=== PATIENT | male | born 1955 | race Caucasian/White ===

== ENCOUNTER → 2019-06-28 11:06 | Outpatient (BNVA) | payer BC, SELFPAY | PROVIDERS: Family Provider Nurse Practitioner Family; PCP Nurse Practitioner Family; Visit Provider Registered Nurse | DX: I10 Essential (primary) hypertension (principal); Z00.00 Encounter for general adult medical examination without abnormal findings; Z53.20 Procedure and treatment not carried out because of patient's decision for unspecified reasons; E55.9 Vitamin D deficiency, unspecified; F17.200 Nicotine dependence, unspecified, uncomplicated | CPT/HCPCS: 80053; 80061; 81000; 81003; 82306; 85025 ==

== ENCOUNTER → 2020-01-02 10:23 | Outpatient (BNVA) | payer BC, SELFPAY | PROVIDERS: Family Provider Nurse Practitioner Family; PCP Nurse Practitioner Family; Visit Provider Registered Nurse | DX: I10 Essential (primary) hypertension (principal); E55.9 Vitamin D deficiency, unspecified; F17.200 Nicotine dependence, unspecified, uncomplicated | CPT/HCPCS: 80053; 82306 ==

== ENCOUNTER → 2020-09-25 08:47 | Outpatient (BNVA) | payer BC, SELFPAY | PROVIDERS: Family Provider Nurse Practitioner Family; PCP Nurse Practitioner Family; Visit Provider Registered Nurse | DX: I10 Essential (primary) hypertension (principal); E11.9 Type 2 diabetes mellitus without complications; E78.5 Hyperlipidemia, unspecified; R01.1 Cardiac murmur, unspecified; F17.200 Nicotine dependence, unspecified, uncomplicated; Z53.20 Procedure and treatment not carried out because of patient's decision for unspecified reasons | CPT/HCPCS: 80053; 80061; 81000; 85025 ==

== ENCOUNTER 2022-04-10 06:27 | Inpatient (IN) | payer MEDICARE, SELFPAY ==
[2022-04-10] VITALS (135 sets, daily range): BP systolic 128–155; BP diastolic 57–89; PULSE 53–98; RESP 7–37; TEMP 37; O2SAT 71–97; BMI 33.0
--- NOTE | 2022-04-10 06:41 | XRR_ITS ---
PROCEDURE INFORMATION: Exam: XR Chest Exam date and time: 04/10/2022 7:53 AM Age: 67 years old Clinical indication: Cough and dyspnea; Additional info: Dyspnea/cough TECHNIQUE: Imaging protocol: Radiologic exam of the chest. Views: 1 view. COMPARISON: No relevant prior studies available. FINDINGS: Lungs: Platelike opacity in the mid right lung likely reflect atelectasis or scarring. Otherwise, no focal airspace consolidation. Pleural spaces: Unremarkable. No pleural effusion. No pneumothorax. Heart/Mediastinum: Unremarkable. No cardiomegaly. Bones/joints: Unremarkable. XR/XR chest 1V portable [id number] IMPRESSION: Platelike opacity in the mid right lung likely reflect atelectasis or scarring.
--- NOTE | 2022-04-10 06:42 | ED_ITS ---
HPI - URI/Sore Throat General: Chief Complaint: Upper Respiratory Infection Stated Complaint: Cough, body aches Time Seen by Provider: 04/10/22 06:29 Source: patient Mode of arrival: ambulatory History of Present Illness: 67-year-old male presents emergency room complaining of muscle aches cough for the last 2 days. Headache sinus congestion as well. His biggest complaint is the myalgias cough is nonproductive. Denies any shortness of breath. No chest pain or abdominal pain. MD elicited complaint: fever and cough Onset (ago): hour(s) Consistency: constant Severity: moderate Able to tolerate fluids by mouth: Yes Exacerbating factors: nothing Relieving factors: nothing Associated symptoms: Reports chills, congestion, cough, fever(s), headache(s) and myalgias; Deny abdominal pain, change in voice, chest pain, diarrhea, epistaxis, ear or mastoid pain, nasal congestion, nausea, rash, rhinorrhea, short of breath, sinus pain, stiffness, sore throat or vomiting Review of Systems Const: Reports: fever(s) and chills; Denies: fatigue or malaise ENMT: Denies: ear or mastoid pain, nasal congestion, epistaxis or sinus pain Card: Denies: chest pain, palpitations, irregular heart rhythm or edema Resp: Denies: dyspnea, productive cough or non-productive cough GI: Denies: abdominal pain, nausea, vomiting or diarrhea : Denies: flank pain, dysuria, urinary frequency or urinary urgency Musc: Denies: neck pain or back pain Skin/Breast: Denies: rash or pruritus Neuro: Reports: headache(s) PFSH ED PFSH: Medical History Heart murmur Reports hx normal echo Hypertension Family History Other Diabetes Social History Smoking and tobacco status: current every day smoker Physical Exam Const: COMMON NORMALS: no acute distress GENERAL APPEARANCE: cooperative and comfortable ORIENTATION/CONSCIOUSNESS: Yes awake, Yes oriented to person, Yes oriented to place and Yes oriented to time HENMT: COMMON NORMALS: normocephalic, atraumatic and hearing grossly normal bilaterally HEAD & SCALP: normocephalic and atraumatic Resp: COMMON NORMALS: normal respiratory effort, No retractions, No use of accessory muscles and clear to auscultation bilaterally AUSCULTATION: clear to auscultation bilaterally Cardio: COMMON NORMALS: regular rate and regular rhythm RATE: regular rate RHYTHM: regular rhythm HEART SOUNDS: Murmur heart sound present systolic Location: apex Intensity: III/ GI: COMMON NORMALS: Soft to palpation and No hepatosplenomegaly present AUSCULTATION: Yes normoactive bowel sounds PALPATION: Yes Soft to palpation, No Tenderness to palpation present (GI), No Guarding due to palpation present (GI) and Yes No hepatosplenomegaly present Extremity: COMMON NORMALS: normal to inspection, capillary refill normal, no clubbing, cyanosis or edema, no calf tenderness and no pedal edema Neuro: SENSORIUM/ORIENTATION: Yes oriented to person, Yes oriented to place and Yes oriented to time Skin: COMMON NORMALS: no rashes or lesions noted GENERAL SKIN EXAM: no rashes or lesions noted Course Vital Signs: Vital signs: Vital Signs Temperature 98.6 F 04/10/22 06:39 Pulse Rate 53 L 04/10/22 09:13 Respiratory Rate 30 H 04/10/22 07:30 Blood Pressure 135/73 04/10/22 06:39 Pulse Oximetry 91 04/10/22 09:13 Oxygen Delivery Me thod 04/10/22 08:38 Oxygen Flow Rate 50 04/10/22 07:30 Fraction of Inspir ed Oxygen 65 04/10/22 09:13 MDM - URI/Sore Throat Medical Decision Making Presentation patient was significantly hypoxic in the 70s oddly he was not tachycardic AllePak he was borderline bradycardic. Blood gases verified that his oxygen sat was reading correct at the bedside we had a good waveform at the bedside monitor. He did respond to heated high flow. Initially was concerned he would likely have COVID was his happy hypoxia . However his CT does not look like COVID's influenza's are negative his the CTA of his chest did not show any pulmonary embolism. He is awake and alert and oriented the entire time. He does have hypercapnia. We are going to put him on BiPAP and recheck a blood gas in an hour. He is mildly hyponatremic, he is also polycythemic but renal function is normal. Discussed with Dr. Connolly will admit the patient to the ICU on BiPAP she will continue to work-up. Medical Records I reviewed the patient's medical records. Lab Data I reviewed the patient's lab results. 04/10/22 06:56 04/10/22 06:56 Radiology Impressions Chest X-Ray 04/10/22 06:41 IMPRESSION: Platelike opacity in the mid right lung likely reflect atelectasis or scarring. Chest CTA 04/10/22 07:27 IMPRESSION: 1. No pulmonary emboli identified. 2. Mild atelectasis in the mid right lung. Laboratory Results WBC 7.5 10^3/uL (4.0-10.0) 04/10/22 06:56 RBC 5.93 10^6/uL (4.1-5.3) H 04/10/22 06:56 Hgb 18.6 g/dL (11.7-16.6) H 04/10/22 06:56 Hct 56.4 % (42.0-52.0) H 04/10/22 06:56 MCV 95.1 fl (80-94) H 04/10/22 06:56 MCH 31.4 pg (28.0-34.0) 04/10/22 06:56 MCHC 33.0 g/dL (30.0-36.0) 04/10/22 06:56 RDW 14.2 % (12.1-15.1) 04/10/22 06:56 Plt Count 126 10^3/cmm (130-400) L 04/10/22 06:56 MPV 10.1 fL (7.4-10.4) 04/10/22 06:56 Neut % (Auto) 76.0 % 04/10/22 06:56 Lymph % (Auto) 10.3 % 04/10/22 06:56 [place] % (Auto) 11.3 % 04/10/22 06:56 Eos % (Auto) 0.4 % 04/10/22 06:56 Baso % (Auto) 0.9 % 04/10/22 06:56 Neut # (Auto) 5.67 10^3/uL (1.8-7.7) 04/10/22 06:56 Lymph # (Auto) 0.8 10^3/uL (0.8-4.8) 04/10/22 06:56 [place] # (Auto) 0.8 10^3/uL (0.2-0.9) 04/10/22 06:56 Eos # (Auto) 0.0 10^3/uL (0.0-0.8) 04/10/22 06:56 Baso # (Auto) 0.1 10^3/uL (0.0-0.1) 04/10/22 06:56 Nucleated RBC % (auto) 0 % 04/10/22 06:56 Nucleated RBCs # 0.0 /100WBC 04/10/22 06:56 D-Dimer 0.34 ug/mIFEU (0-0.59) 04/10/22 07:30 Specimen Type Arterial 04/10/22 07:11 Sample Site Radial, left 04/10/22 07:11 ABG pH 7.33 (7.35-7.45) L 04/10/22 07:11 ABG pCO2 64.4 mmHg (35-45) H* 04/10/22 07:11 ABG pO2 34.5 mmHg (80.0-100.0) L* 04/10/22 07:11 ABG HCO3 34.1 mmol/L (22-26) H 04/10/22 07:11 ABG O2 Saturation 68.8 04/10/22 07:11 ABG Base Excess 5.1 mmol/L (-2.0-2.0) H 04/10/22 07:11 Jacky Test Pos 04/10/22 07:11 A-a O2 Gradient 4.7 mmHg (5-10) L 04/10/22 07:11 Hematocrit 58.3 % (42-52) H 04/10/22 07:11 Hgb O2 Saturation 65.6 % (95-100) L 04/10/22 07:11 Carboxyhemoglobin 4.6 %THgb (0.4-20.1) 04/10/22 07:11 Methemoglobin 0.1 % (0.4-1.5) L 04/10/22 07:11 Total Hemoglobin 19.0 g/dL (14-18) H 04/10/22 07:11 Sodium 133.0 mmol/L (131-143) 04/10/22 07:11 Potassium 4.0 mmol/L (3.5-5.0) 04/10/22 07:11 Glucose 110.0 mg/dL (70-115) 04/10/22 07:11 Ionized Calcium 1.4 mmol/L (1.1-1.4) 04/10/22 07:11 O2 Delivery Device Room air 04/10/22 07:11 FiO2 21.0 % 04/10/22 07:11 Broke Beater Machine Operator ID glc 04/10/22 07:11 Sodium 128 mmol/L (136-145) L 04/10/22 06:56 Potassium 4.1 mmol/L (3.5-5.1) 04/10/22 06:56 Chloride 91 mmol/L (98-107) L 04/10/22 06:56 Carbon Dioxide 33 mmol/L (22-29) H 04/10/22 06:56 Anion Gap 8.1 (5-19) 04/10/22 06:56 BUN 26 mg/dL (8-23) H 04/10/22 06:56 Creatinine 0.9 mg/dL (0.7-1.2) 04/10/22 06:56 GFR Calculation 84.7 mL/min (90-130) L 04/10/22 06:56 Glucose 117 mg/dL (65-115) H 04/10/22 06:56 Calculated Osmolality 272 mOsm/kg (285-295) L 04/10/22 06:56 Calcium 10.2 mg/dL (8.5-10.5) 04/10/22 06:56 Total Bilirubin 0.8 mg/dL (0.15-1.2) 04/10/22 06:56 AST 23 U/L (0-40) 04/10/22 06:56 ALT 29 U/L (0-41) 04/10/22 06:56 Alkaline Phosphatase 72 U/L (40-130) 04/10/22 06:56 Total Protein 7.0 g/dL (6.6-8.7) 04/10/22 06:56 Albumin 3.8 g/dL (3.5-5.2) 04/10/22 06:56 Globulin 3.2 g/dL (1.3-4.6) 04/10/22 06:56 Procalcitonin 0.13 ng/mL (0-0.5) 04/10/22 07:30 Influenza Type A Ag negative (Negative) 04/10/22 07:32 Influenza Type B Ag negative (Negative) 04/10/22 07:32 Discharge Plan Discharge Patient Disposition: Admitted As Inpatient Clinical Impression: Respiratory failure with hypoxia and hypercapnia, Hyponatremia, Polycythemia Condition: Stable Prescriptions: No Action amlodipine 10 mg tablet See Rx Instructions .ROUTE .COMPLEX Qty: 90 3RF Dose Instruction: Take 1 tablet by mouth once daily Rx Instructions: Take 1 tablet by mouth once daily metoprolol tartrate 25 mg tablet 25 mg PO BID 90 Days Qty: 180 4RF telmisartan-hydrochlorothiazid 80-25 mg tablet See Rx Instructions .ROUTE .COMPLEX Qty: 90 4RF Dose Instruction: Take 1 tablet by mouth once daily Rx Instructions: Take 1 tablet by mouth once daily cholecalciferol (vitamin D3) 1,250 mcg (50,000 unit) capsule 1,250 mcg PO .once a week Qty: 12 1RF Referrals: Andrew Henderson FNP [Primary Care Provider] - Coding Level of Care Code ED Truck Trailer Mechanic for Chg Fwd Exam Detailed
[2022-04-10] MEDS: ibuprofen 800 mg tablet PO (06:45)
[2022-04-10 07:06] LABS: Basophils # 0.1 10^3/uL (0.0-0.1); Basophils % 0.9 %; Eosinophils % 0.4 %; Hematocrit 56.4 % (42.0-52.0); Hemoglobin 18.6 g/dL (11.7-16.6); Lymphocytes # 0.8 10^3/uL (0.8-4.8); Lymphocytes % 10.3 %; Mean Corpuscular Hemoglobin 31.4 pg (28.0-34.0); Mean Corpuscular Volume 95.1 fl (80-94); Mean Platelet Volume 10.1 fL (7.4-10.4); Monocytes # 0.8 10^3/uL (0.2-0.9); Monocytes % 11.3 %; Neutrophils # 5.67 10^3/uL (1.8-7.7); Nucleated Red Blood Cells % 0 %; Platelet Count 126 10^3/cmm (130-400); Red Blood Count 5.93 10^6/uL (4.1-5.3); Red Cell Distribution Width 14.2 % (12.1-15.1); White Blood Count 7.5 10^3/uL (4.0-10.0)
--- NOTE | 2022-04-10 07:14 | PC.NURSE ---
Pt is reading 75% with good wave form, pt denies any kind of lung problems but dies say he is a smoker. Pt denies any resp distress and says he is breathing fine at this time
[2022-04-10 07:20] LABS: ABG PH Result 7.33 (7.35-7.45); Alveolar-Arterial Oxygen Gradi 4.7 mmHg (5-10); Arterial Blood Gas Hematocrit 58.3 % (42-52); Base Excess ABG 5.1 mmol/L (-2.0-2.0); Blood Gas Allen Test Pos; Blood Gas Operator Identificat glc; Blood Gas Sample Site Radial, left; Blood Gas Sample Type Arterial; Carboxyhemoglobin 4.6 %THgb (0.4-20.1); HCO3 ABG 34.1 mmol/L (22-26); HGB O2 Sat 65.6 % (95-100); Ionized Calcium Level - ABG 1.4 mmol/L (1.1-1.4); Methemoglobin 0.1 % (0.4-1.5); Oxygen Device ROOM AIR; Oxygen Saturation ABG 68.8; PO2 ABG 34.5 mmHg (80.0-100.0)
[2022-04-10 07:21] LABS: Alanine Aminotransferase 29 U/L (0-41); Albumin Level 3.8 g/dL (3.5-5.2); Alkaline Phosphatase 72 U/L (40-130); Anion Gap 8.1 (5-19); Aspartate Amino Transferase 23 U/L (0-40); Blood Urea Nitrogen 26 mg/dL (8-23); Calcium 10.2 mg/dL (8.5-10.5); Carbon Dioxide 33 mmol/L (22-29); Chloride 91 mmol/L (98-107); Globulin 3.2 g/dL (1.3-4.6); Glomerular Filtration Rate 84.7 mL/min (90-130); Glucose 117 mg/dL (65-115); Osmolality Calculated 272 mOsm/kg (285-295); Potassium 4.1 mmol/L (3.5-5.1); Sodium 128 mmol/L (136-145); Total Bilirubin 0.8 mg/dL (0.15-1.2)
[2022-04-10 07:22] LABS: ABG PCO2 64.4 mmHg (35-45)
--- NOTE | 2022-04-10 07:27 | CTR_ITS ---
PROCEDURE INFORMATION: Exam: CTA Chest With Contrast Exam date and time: 04/10/2022 7:52 AM Age: 67 years old Clinical indication: Shortness of breath; Additional info: Hypoxia TECHNIQUE: Imaging protocol: Computed tomographic angiography of the chest with contrast. 3D rendering (Not supervised by radiologist): MIP and/or 3D reconstructed images were created by the technologist. Radiation optimization: All CT scans at this facility use at least one of these dose optimization techniques: automated exposure control; mA and/or kV adjustment per patient size (includes targeted exams where dose is matched to clinical indication); or iterative reconstruction. Contrast material: OMNI 350; Contrast volume: 98 ml; Contrast route: INTRAVENOUS (IV); COMPARISON: No relevant prior studies available. RADIATION DOSE METRICS: Total DLP (mGy-cm): 542.2 FINDINGS: Pulmonary arteries: Normal. No pulmonary emboli. Aorta: Unremarkable. No aortic aneurysm. No aortic dissection. Lungs: Mild atelectasis in the mid right lung. Otherwise, no focal airspace consolidation. Pleural spaces: Unremarkable. No pneumothorax. No pleural effusion. Heart: Unremarkable. No cardiomegaly. No pericardial effusion. Lymph nodes: Mildly prominent right hilar lymphoid tissue, nonspecific. Diaphragm: Elevation of the right hemidiaphragm. Adrenal glands: Low-density nodule in the left adrenal gland measuring 2.6 cm likely reflects an adenoma. Bones/joints: Remote appearing compression fractures in the lower thoracic spine. Soft tissues: Unremarkable. CT/CT angio chest PE protcl [id number] IMPRESSION: 1. No pulmonary emboli identified. 2. Mild atelectasis in the mid right lung.
[2022-04-10] MEDS: ipratropium-albuterol 3 mL Neb INHALATION ×3 (07:37→19:23)
[2022-04-10] MEDS: iohexol 350 mg/mL 500 mL Btl (per mL) IV (07:56)
[2022-04-10 07:57] LABS: D Dimer 0.34 ug/mIFEU (0-0.59)
[2022-04-10 08:10] LABS: Procalcitonin 0.13 ng/mL (0-0.5)
[2022-04-10 08:11] LABS: Influenza A by IFA negative (Negative); Influenza B by IFA negative (Negative)
--- NOTE | 2022-04-10 08:51 | ECG_ITS ---
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 Measurements Intervals [place] Rate: 68 P: 40 MI: 179 QRS: -25 QRSD: 112 T: 112 QT: 390 QTc: 415 Interpretive Statements SINUS RHYTHM POSSIBLE LEFT ATRIAL ENLARGEMENT [-0.1mV P-WAVE IN V1/V2] SEPTAL MYOCARDIAL INFARCTION , OF INDETERMINATE AGE [40+ ms Q WAVE IN V1/V2] MODERATE T-WAVE ABNORMALITY, CONSIDER LATERAL ISCHEMIA [-0.1+ mV T-WAVE IN I/aVL/V5/V6] No previous ECG available for comparison Electronically Signed On 04-11-2022 13:53:56 DIRECTOR CLINICAL DATA by Yenifer Wallace M.D. [id number]
[2022-04-10 10:13] LABS: Acetaminophen < 5.0 ug/mL (10-30); Salicylate < 0.3 mg/dL (3-10)
[2022-04-10 10:48] LABS: Amphetamines Screen Urine Negative (Negative); Barbiturates Screen Urine Negative (Negative); Benzodiazepines Screen Urine Negative (Negative); Cocaine Screen Urine Negative (Negative); Opiate Screen Urine Negative (Negative); PCP Screen Urine Negative (Negative); THC Screen Urine Negative (Negative)
[2022-04-10 11:17] LABS: Adenovirus Not Detected (NOT DETECT); Chlamydia Pneumoniae Not Detected (NOT DETECT); Coronavirus 229E,HKU1,NL63,OC4 Not Detected (NOT DETECT); Human Metapneumovirus Not Detected (NOT DETECT); Human Rhinovirus/Enterovirus Not Detected (NOT DETECT); Influenza A Detected (NOT DETECT); Influenza A H1 Not Detected (NOT DETECT); Influenza A H1-2009 Not Detected (NOT DETECT); Influenza A H3 Detected (NOT DETECT); Influenza B Not Detected (NOT DETECT); Mycoplasma Pneumoniae Not Detected (NOT DETECT); Parainfluenza Virus Type 1 Not Detected (NOT DETECT); Parainfluenza Virus Type 2 Not Detected (NOT DETECT); Parainfluenza Virus Type 3 Not Detected (NOT DETECT); Parainfluenza Virus Type 4 Not Detected (NOT DETECT); Respiratory Syncytial Virus A Not Detected (NOT DETECT); Respiratory Syncytial Virus B Not Detected (NOT DETECT); SARS-COV-2 Not Detected (NOT DETECT)
[2022-04-10 11:25] LABS: Influenza A Detected (NOT DETECT); Influenza A H1 Not Detected (NOT DETECT); Influenza A H1-2009 Not Detected (NOT DETECT); Influenza A H3 Detected (NOT DETECT); Influenza B Not Detected (NOT DETECT); Results from Genmark
--- NOTE | 2022-04-10 13:28 | P.HP_ITS ---
Providers/Chief Complaint Admitting Physician: Muna Connolly MD Primary Care Provider: KEREN Ortega Chief Complaint: Cough, body aches History of Present Illness Fly Cervantes is a 67 year old male with a past medical history of hypertension, possible emphysema/COPD, chronic smoker for over 40 years, presented to the emergency room today complaining of generalized body ache. He states he felt generalized malaise and that is what brought him into the emergency room. Upon presentation here he was noted to be saturating only 70% on room air though did not appear to be tachypneic or in overt respiratory distress as a result of the same. His blood gas was significantly deranged with a pH of 7.33/64.4/34.5/34.1. He was placed on heated high flow nasal cannula at 70% FiO2 with improvement in O2 sats at 91%. Patient refused to be placed on a BiPAP as it made him feel claustrophobic. He denies having had any fever at home, however reports subjective chills. CTA of his chest did not reveal any gross consolidation. He denies any cough or expectoration. He did have wheezing on exam bilaterally. He turned out to be influenza positive. Review of Systems General: Reports: 10 or more systems reviewed and unremarkable except in HPI and below Const: Denies: fever(s), chills or body aches Eyes: Denies: change in vision, blurry vision or photophobia ENMT: Reports: hoarseness; Denies: throat pain, enlarged tonsils, odynophagia or nasal congestion Card: Denies: chest pain, palpitations, irregular heart rhythm, edema, swelling of feet/ankles, lightheadedness, pre-syncope, dyspnea on exertion or orthopnea Resp: Denies: dyspnea, productive cough, non-productive cough, wheezing, stridor, pain on inspiration, change in phlegm color, hemoptysis or chest congestion GI: Denies: abdominal pain, nausea, vomiting, hematemesis, coffee ground emesis, dysphagia, heartburn, diarrhea, constipation, GI cramping, change in stool character, hematochezia or melena : Denies: flank pain, dysuria, urinary frequency, urinary urgency, urinary hesitancy or hematuria Musc: Denies: neck pain, back pain, extremity pain, joint swelling, joint warmth or deformity Neuro: Denies: headache(s), numbness in extremities, weakness in extremities, sensory changes, difficulty walking, frequent falls, dizziness, vertigo, behavioral changes, Slurred speech present or seizure-like activity Psych: Denies: anxiety, depression, suicidal ideation or homicidal ideation Endo: Denies: polyuria, polydipsia, tired all the time, cold intolerance or hot flashes Jesús/Lymph: Denies: easy bruising or easy bleeding Medications/Allergies Home Medications Medication Instructions Recorded Confirmed Last Taken Type metoprolol tartrate 25 mg tablet 25 mg PO BID 90 days #180 tabs 06/04/21 04/10/22 04/10/22 Rx amlodipine 10 mg tablet 10 mg PO DAILY 04/10/22 04/10/22 04/10/22 History aspirin 81 mg chewable tablet 81 mg PO DAILY 04/10/22 04/10/22 04/10/22 History dicyclomine 20 mg tablet 20 mg PO QID 04/10/22 04/10/22 04/10/22 History multivitamin 1 tab PO DAILY 04/10/22 04/10/22 04/10/22 History telmisartan 80 1 tab PO DAILY 04/10/22 04/10/22 04/10/22 History mg-hydrochlorothiazide 25 mg tablet Allergies Allergy/AdvReac Type Severity Reaction Status Date / Time No Known Allergies Allergy Verified 06/04/21 14:44 PFSH Acute PFSH: Medical History Heart murmur Reports hx normal echo Hypertension Family History Other Diabetes Social History Smoking and tobacco status: current every day smoker Vitals/I&O/Wt Last Vital Signs Temp 98.6 F 04/10/22 06:39 Pulse 62 04/10/22 10:07 Resp 30 H 04/10/22 07:30 BP 135/73 04/10/22 06:39 Pulse Ox 94 04/10/22 10:07 O2 Del Method 04/10/22 08:38 O2 Flow Rate 50 04/10/22 07:30 FiO2 70 04/10/22 10:07 Weight last 48 hrs Weight 113.398 kg Physical Exam Narrative: General: No acute distress, AO x3, currently on a heated high flow HEENT: PERRLA, pupils bilaterally equal and reactive, pallors not present Chest: Bilateral wheezing to auscultation CVS: S1-S2 regular, no murmurs, no tachycardia, no gallops, no rubs Abdomen: Soft, nontender, no organomegaly, bowel sounds present Neuro: No focal deficits, no facial deformity, AO x3, power 5/5 in all limbs Extremities: No edema clubbing or cyanosis. Data 04/10/22 06:56 04/10/22 06:56 Micro: Microbiology 04/10/22 07:33 Blood Culture - Preliminary Blood SPECIMEN COLLECTED 04/10/22 07:30 Blood Culture - Preliminary Blood SPECIMEN COLLECTED ABG Interpretation 1: 04/10/22 04/10/22 07:11 14:25 ABG pH 7.33 L 7.30 L ABG pCO2 64.4 H* 71.2 H* ABG pO2 34.5 L* 70.3 L ABG HCO3 34.1 H 34.7 H ABG O2 Saturation 68.8 ABG Base Excess 5.1 H 4.5 H Other data: Radiology Impressions Chest X-Ray 04/10/22 06:41 IMPRESSION: Platelike opacity in the mid right lung likely reflect atelectasis or scarring. Chest CTA 04/10/22 07:27 IMPRESSION: 1. No pulmonary emboli identified. 2. Mild atelectasis in the mid right lung. Laboratory Results WBC 7.5 10^3/uL (4.0-10.0) 04/10/22 06:56 RBC 5.93 10^6/uL (4.1-5.3) H 04/10/22 06:56 Hgb 18.6 g/dL (11.7-16.6) H 04/10/22 06:56 Hct 56.4 % (42.0-52.0) H 04/10/22 06:56 MCV 95.1 fl (80-94) H 04/10/22 06:56 MCH 31.4 pg (28.0-34.0) 04/10/22 06:56 MCHC 33.0 g/dL (30.0-36.0) 04/10/22 06:56 RDW 14.2 % (12.1-15.1) 04/10/22 06:56 Plt Count 126 10^3/cmm (130-400) L 04/10/22 06:56 MPV 10.1 fL (7.4-10.4) 04/10/22 06:56 Neut % (Auto) 76.0 % 04/10/22 06:56 Lymph % (Auto) 10.3 % 04/10/22 06:56 [place] % (Auto) 11.3 % 04/10/22 06:56 Eos % (Auto) 0.4 % 04/10/22 06:56 Baso % (Auto) 0.9 % 04/10/22 06:56 Neut # (Auto) 5.67 10^3/uL (1.8-7.7) 04/10/22 06:56 Lymph # (Auto) 0.8 10^3/uL (0.8-4.8) 04/10/22 06:56 [place] # (Auto) 0.8 10^3/uL (0.2-0.9) 04/10/22 06:56 Eos # (Auto) 0.0 10^3/uL (0.0-0.8) 04/10/22 06:56 Baso # (Auto) 0.1 10^3/uL (0.0-0.1) 04/10/22 06:56 Nucleated RBC % (auto) 0 % 04/10/22 06:56 Nucleated RBCs # 0.0 /100WBC 04/10/22 06:56 D-Dimer 0.34 ug/mIFEU (0-0.59) 04/10/22 07:30 Specimen Type Arterial 04/10/22 07:11 Sample Site Radial, left 04/10/22 07:11 ABG pH 7.33 (7.35-7.45) L 04/10/22 07:11 ABG pCO2 64.4 mmHg (35-45) H* 04/10/22 07:11 ABG pO2 34.5 mmHg (80.0-100.0) L* 04/10/22 07:11 ABG HCO3 34.1 mmol/L (22-26) H 04/10/22 07:11 ABG O2 Saturation 68.8 04/10/22 07:11 ABG Base Excess 5.1 mmol/L (-2.0-2.0) H 04/10/22 07:11 Jacky Test Pos 04/10/22 07:11 A-a O2 Gradient 4.7 mmHg (5-10) L 04/10/22 07:11 Hematocrit 58.3 % (42-52) H 04/10/22 07:11 Hgb O2 Saturation 65.6 % (95-100) L 04/10/22 07:11 Carboxyhemoglobin 4.6 %THgb (0.4-20.1) 04/10/22 07:11 Methemoglobin 0.1 % (0.4-1.5) L 04/10/22 07:11 Total Hemoglobin 19.0 g/dL (14-18) H 04/10/22 07:11 Sodium 133.0 mmol/L (131-143) 04/10/22 07:11 Potassium 4.0 mmol/L (3.5-5.0) 04/10/22 07:11 Glucose 110.0 mg/dL (70-115) 04/10/22 07:11 Ionized Calcium 1.4 mmol/L (1.1-1.4) 04/10/22 07:11 O2 Delivery Device Room air 04/10/22 07:11 FiO2 21.0 % 04/10/22 07:11 Wafer Batter Mixer ID glc 04/10/22 07:11 Sodium 128 mmol/L (136-145) L 04/10/22 06:56 Potassium 4.1 mmol/L (3.5-5.1) 04/10/22 06:56 Chloride 91 mmol/L (98-107) L 04/10/22 06:56 Carbon Dioxide 33 mmol/L (22-29) H 04/10/22 06:56 Anion Gap 8.1 (5-19) 04/10/22 06:56 BUN 26 mg/dL (8-23) H 04/10/22 06:56 Creatinine 0.9 mg/dL (0.7-1.2) 04/10/22 06:56 GFR Calculation 84.7 mL/min (90-130) L 04/10/22 06:56 Glucose 117 mg/dL (65-115) H 04/10/22 06:56 Calculated Osmolality 272 mOsm/kg (285-295) L 04/10/22 06:56 Lactic Acid 1.0 mmol/L (0.5-2.2) 04/10/22 07:30 Calcium 10.2 mg/dL (8.5-10.5) 04/10/22 06:56 Total Bilirubin 0.8 mg/dL (0.15-1.2) 04/10/22 06:56 AST 23 U/L (0-40) 04/10/22 06:56 ALT 29 U/L (0-41) 04/10/22 06:56 Alkaline Phosphatase 72 U/L (40-130) 04/10/22 06:56 Total Protein 7.0 g/dL (6.6-8.7) 04/10/22 06:56 Albumin 3.8 g/dL (3.5-5.2) 04/10/22 06:56 Globulin 3.2 g/dL (1.3-4.6) 04/10/22 06:56 Procalcitonin 0.13 ng/mL (0-0.5) 04/10/22 07:30 Nasal Influ A H1 2009 PCR Not detected (NOT DETECT) 04/10/22 11:24 Salicylates < 0.3 mg/dL (3-10) L 04/10/22 07:30 Urine Opiates Screen Negative ng/mL (Negative) 04/10/22 09:42 Acetaminophen < 5.0 ug/mL (10-30) L 04/10/22 07:30 Ur Barbiturates Screen Negative ng/mL (Negative) 04/10/22 09:42 Ur Phencyclidine Scrn Negative ng/mL (Negative) 04/10/22 09:42 Ur Amphetamines Screen Negative ng/mL (Negative) 04/10/22 09:42 U Benzodiazepines Scrn Negative ng/mL (Negative) 04/10/22 09:42 Urine Cocaine Screen Negative ng/mL (Negative) 04/10/22 09:42 U Marijuana (THC) Screen Negative ng/mL (Negative) 04/10/22 09:42 Coronavirus 229E (PCR) Not detected (NOT DETECT) 04/10/22 07:45 Influenza A (H1) PCR Not detected (NOT DETECT) 04/10/22 11:24 Influenza A (H3) PCR Detected (NOT DETECT) A 04/10/22 11:24 Influenza Type A Ag negative (Negative) 04/10/22 07:32 Influenza Type A (PCR) Detected (NOT DETECT) A 04/10/22 11:24 Influenza Type B Ag negative (Negative) 04/10/22 07:32 Influenza Type B (PCR) Not detected (NOT DETECT) 04/10/22 11:24 SARS-CoV-2 (PCR) Not detected (NOT DETECT) 04/10/22 07:45 A&P Assessment and plan (1) Respiratory failure with hypoxia and hypercapnia: (2) Smoker unmotivated to quit: (3) Polycythemia: (4) COPD exacerbation: (5) Influenza A with respiratory manifestations: Plan Patient presenting today with complaints of generalized body ache malaise, found to be influenza A positive. Also noted to have acute hypoxic hypercapnic respiratory failure for which she is needed to be quickly placed on escalating oxygen requirements with heated high flow nasal cannula. Ideally patient also needs to be on a BiPAP for his hypercapnia, however he refuses this intervention as he is claustrophobic. Hypoxia is improving on heated hi flow. Patient does not have a formal diagnosis of COPD, however given that he is a chronic smoker for over, elevated bicarb, polycythemia, no gross mental status changes with hypercarbia, suspect that he has underlying COPD. He also gives a history of bronchitis type symptoms once to twice a year. He has never needed a nebulizer in the past. Continue on supplemental O2 to keep target saturation of 90 to 92%. Encourage BiPAP use if able. Start Tamiflu 75 mg p.o. twice daily. Patient may be experiencing an COPD exacerbation from acute viral illness. We will additionally start methylprednisolone 40 mg IV every 8 hours and taper as possible. Scheduled DuoNeb and budesonide inhalation. CTA chest negative for gross consolidation or pneumonitis. No PE. Admitted to ICU for close monitoring of respiratory status. Attestations Medical Necessity Statement*: Admitted to ICU in view of acute hypoxic hypercapnic respiratory failure, needing high oxygen supplementation, additionally recommended noninvasive pressure ventilation. Anticipate greater than 2 midnight stay Critical Care Time: The high probability of a clinically significant, sudden or life threatening deterioration of the patient's [respiratory] system(s) required my full and direct attention, intervention and personal management. The critical care time is as shown. This time is in addition to time spent performing any reported procedures but includes the following: [x] Data and vital sign review and interpretation [x] Patient assessment, examination and intervention [x] Documentation [x] Medication orders and management Coding Level of Care Code Acute [employer]iers [employer] Runners for Carlosg Fwd Diagnoses Respiratory failure with hypoxia and hypercapnia J96.91; J96.92 Smoker unmotivated to quit F17.200 Polycythemia D75.1 COPD exacerbation J44.1 Influenza A with respiratory manifestations J10.1
[2022-04-10] MEDS: sodium chloride 0.9% 1,000 ML 100 ML IV (14:04)
[2022-04-10] MEDS: enoxaparin 40 mg/0.4 mL Syringe SUBCUT (14:04)
[2022-04-10] MEDS: oseltamivir phosphate 75 mg Capsule PO ×2 (14:05→17:01)
[2022-04-10 14:45] LABS: ABG PCO2 71.2 mmHg (35-45); Arterial Blood Gas Hematocrit 58.9 % (42-52); Base Excess ABG 4.5 mmol/L (-2.0-2.0); Blood Gas Allen Test Pos; Blood Gas Operator Identificat GD; Blood Gas Sample Site Radial, right; Blood Gas Sample Type Arterial; HCO3 ABG 34.7 mmol/L (22-26); Oxygen Device NC; PO2 ABG 70.3 mmHg (80.0-100.0)
--- NOTE | 2022-04-10 15:24 | PC.RESP ---
pt states he does not want to wear bipap at this time.
[2022-04-10] MEDS: metoprolol tartrate 25 mg Tablet PO (17:01)
--- NOTE | 2022-04-10 17:11 | PC.NURSE ---
Patient resting in bed, wearing Bipap. Patient very compliant with cares and staff.
[2022-04-10] MEDS: budesonide 0.5 mg/2 mL Neb INHALATION (19:24)
[2022-04-10 22:54] LABS: Potassium, Radom Urine 49 mmol/L; Urine Random Chloride 23 mmol/L; Urine Random Sodium 21 mmol/L
[2022-04-11] VITALS (108 sets, daily range): BP systolic 117–161; BP diastolic 58–84; PULSE 56–89; RESP 1–31; TEMP 36.7; O2SAT 85–97
[2022-04-11] MEDS: sodium chloride 0.9% 1,000 ML 100 ML IV ×2 (00:05→09:04)
[2022-04-11] MEDS: ipratropium-albuterol 3 mL Neb INHALATION ×4 (03:02→19:55)
[2022-04-11 03:54] LABS: Basophils % 0.1 %; Hematocrit 55.9 % (42.0-52.0); Hemoglobin 18.2 g/dL (11.7-16.6); Lymphocytes # 0.7 10^3/uL (0.8-4.8); Lymphocytes % 6.2 %; Mean Corpuscular HGB Conc 32.6 g/dL (30.0-36.0); Mean Corpuscular Hemoglobin 31.3 pg (28.0-34.0); Mean Platelet Volume 10.2 fL (7.4-10.4); Monocytes # 0.5 10^3/uL (0.2-0.9); Monocytes % 4.5 %; Neutrophils # 10.24 10^3/uL (1.8-7.7); Neutrophils % 88.7 %; Nucleated Red Blood Cells % 0 %; Platelet Count 132 10^3/cmm (130-400); Red Blood Count 5.82 10^6/uL (4.1-5.3); White Blood Count 11.5 10^3/uL (4.0-10.0)
[2022-04-11 04:24] LABS: Alanine Aminotransferase 23 U/L (0-41); Albumin Level 3.3 g/dL (3.5-5.2); Alkaline Phosphatase 68 U/L (40-130); Anion Gap 11.8 (5-19); Aspartate Amino Transferase 22 U/L (0-40); Blood Urea Nitrogen 43 mg/dL (8-23); Calcium 10.5 mg/dL (8.5-10.5); Carbon Dioxide 32 mmol/L (22-29); Chloride 98 mmol/L (98-107); Globulin 3.2 g/dL (1.3-4.6); Glomerular Filtration Rate 60.8 mL/min (90-130); Glucose 196 mg/dL (65-115); Magnesium 2.2 mg/dL (1.7-2.3); Osmolality Calculated 300 mOsm/kg (285-295); Potassium 4.8 mmol/L (3.5-5.1); Sodium 137 mmol/L (136-145); Total Bilirubin 0.3 mg/dL (0.15-1.2); Total Protein 6.5 g/dL (6.6-8.7)
[2022-04-11] MEDS: budesonide 0.5 mg/2 mL Neb INHALATION ×2 (08:43→19:55)
[2022-04-11 08:53] LABS: Alveolar-Arterial Oxygen Gradi 44.3 mmHg (5-10); Arterial Blood Gas Hematocrit 57.5 % (42-52); Base Excess ABG 3.1 mmol/L (-2.0-2.0); Blood Gas Allen Test Pos; Blood Gas Operator Identificat CAK; Blood Gas Sample Site Radial, left; Blood Gas Sample Type Arterial; Carboxyhemoglobin 0.9 %THgb (0.4-20.1); HCO3 ABG 32.4 mmol/L (22-26); HGB O2 Sat 94.9 % (95-100); Ionized Calcium Level - ABG 1.4 mmol/L (1.1-1.4); Methemoglobin 0.3 % (0.4-1.5); Oxygen Device BIPAP; Oxygen Saturation ABG 96.1; PO2 ABG 79.4 mmHg (80.0-100.0); Potassium Level - ABG 4.5 mmol/L (3.5-5.0); Total Hemoglobin 18.8 g/dL (14-18)
[2022-04-11 08:54] LABS: ABG PCO2 65.2 mmHg (35-45)
[2022-04-11] MEDS: aspirin 81 mg Chew Tablet PO (09:03)
[2022-04-11] MEDS: amlodipine 10 mg Tablet PO (09:03)
[2022-04-11] MEDS: pantoprazole DR 40 mg Tablet PO (09:03)
[2022-04-11] MEDS: oseltamivir phosphate 75 mg Capsule PO ×2 (09:03→16:53)
[2022-04-11] MEDS: metoprolol tartrate 25 mg Tablet PO (09:03)
[2022-04-11] MEDS: levoFLOXacin 750 mg Tablet PO (09:03)
--- NOTE | 2022-04-11 09:56 | PC.CHAP ---
Pastoral Care Encounter/Spiritual Assessment Type of Contact [] Declined burrer hand visit [] Patient/Family/Request visit [] Outpatient visit [] Follow-up visit [] Physician referral [] Code/Alert [x] Routine visit [] Staff referral [] Actively dying [] Patient sleeping [] Family support [] [] Out of room [] Palliative care [] [x] Receiving care in room [] Pre-surgical visit [] Trauma [] Long length of stay [x] ICU visit [x] Other: setting in chair Relational/Emotional Strength [] Patient feels connected with others/family/visitors/staff [] Distress [] Loneliness/isolation [] Abandonment Spirituality of Patient [] Person of Kelsie [] Attends Spiritism of their Kelsie [] Believes in Prayer [] Reads Bible or Mandaeism materials [] There are Spiritual issues to be addressed Food Sales Clerk Interventions [x] Prayer [] Active listening [] Non-anxious presence [] Spiritual/emotional support [] Crisis/trauma care [] Spiritual counseling [] Bereavement support [] Provided bereavement packet [] Provided Bible/devotional materials [] Provided toy/stuffed animal, coloring book to patient or family member [] Provided Communion [] Anointing/Points [] Salvation [x] Completed spiritual assessment [] Other: Impact on Illness or Injury [] Angry [] Fearful [] Anxious [] Often cries [] Exhaustion [] Unable to work [] Unable to attend protestant [] Unable to walk/stand [] Unable to read [] Unable to drive [] Unable to eat/drink [] Unable to sleep [] Unable to be with family [] Patient intubated [] Other: Summary Time spent with patient
--- NOTE | 2022-04-11 10:48 | P.PN_ITS ---
Subjective Subjective: Patient agreed to wear a BiPAP last evening and kept it on overnight. This morning his blood gases looking better. pH 7.3, 65.2/79.4/32.4. His breathing feels better but he states that he is very claustrophobic and would like to take the BiPAP off now. He has been afebrile. Medications: Reviewed: Yes Vitals/I&O/Wt Last Vital Signs Temp 98.1 F 04/11/22 08:30 Pulse 63 04/11/22 09:30 Resp 25 H 04/11/22 09:30 BP 139/73 04/11/22 09:30 Pulse Ox 94 04/11/22 09:30 O2 Del Method 04/11/22 03:02 O2 Flow Rate 45 04/11/22 09:08 FiO2 70 04/11/22 09:08 04/10/22 04/11/22 04/11/22 22:59 06:59 14:59 Intake Total 480 / 480 1000 / 1480 1258.333 / 1258.333 Output Total 950 / 950 Balance 480 / 480 50 / 530 1258.333 / 1258.333 Weight last 48 hrs Weight 122.016 kg Weight 122.016 kg Weight 113.398 kg Physical Exam Narrative: General: No acute distress, AO x3, currently on Bipap HEENT: PERRLA, pupils bilaterally equal and reactive, pallors not present Chest: Bilateral wheezing to auscultation CVS: S1-S2 regular, no murmurs, no tachycardia, no gallops, no rubs Abdomen: Soft, nontender, no organomegaly, bowel sounds present Neuro: No focal deficits, no facial deformity, AO x3, power 5/5 in all limbs Extremities: No edema clubbing or cyanosis. Data 04/11/22 03:24 04/11/22 03:24 Micro: Microbiology 04/10/22 07:33 Blood Culture - Preliminary Blood NEGATIVE TO DATE 04/10/22 07:30 Blood Culture - Preliminary Blood NEGATIVE TO DATE A&P Assessment and plan (1) Respiratory failure with hypoxia and hypercapnia: (2) Smoker unmotivated to quit: (3) Polycythemia: (4) COPD exacerbation: (5) Influenza A with respiratory manifestations: Plan Patient presenting today with complaints of generalized body ache malaise, found to be influenza A positive. Also noted to have acute hypoxic hypercapnic respiratory failure for which she is needed to be quickly placed on escalating oxygen requirements with heated high flow nasal cannula. HE agreed to wear a BIPAP overnoght following which his ABG is looking improved today. He continues to have B/L diffuse wheezing. Patient does not have a formal diagnosis of COPD, however given that he is a chronic smoker for over, elevated bicarb, polycythemia, no gross mental status changes with hypercarbia, suspect that he has underlying COPD. He also gives a history of bronchitis type symptoms once to twice a year. He has never needed a nebulizer in the past. Continue on supplemental O2 to keep target saturation of 90 to 92%, change Bipap to heated high flow. Encourage BiPAP at night time Start Tamiflu 75 mg p.o. twice daily. Patient may be experiencing an COPD exacerbation from acute viral illness. taper methylprednisolone 40 mg IV every 12 hours and taper as possible. Scheduled DuoNeb and budesonide inhalation. CTA chest negative for gross consolidation or pneumonitis. No PE. Admitted to ICU for close monitoring of respiratory status. Attestations Medical Necessity Statement*: ongoing admission for high 02 requirements with heated hi flow. taper iv steroids, round the clock nebulization Critical Care Time: The high probability of a clinically significant, sudden or life threatening deterioration of the patient's [respiratory] system(s) required my full and direct attention, intervention and personal management. The critical care time is as shown. This time is in addition to time spent performing any reported procedures but includes the following: [x] Data and vital sign review and interpretation [x] Patient assessment, examination and intervention [x] Documentation [x] Medication orders and management Critical Care Time (min): 40 Coding Level of Care Code Acute Glass Blower Helper for Chg Fwd Diagnoses Respiratory failure with hypoxia and hypercapnia J96.91; J96.92 Smoker unmotivated to quit F17.200 Polycythemia D75.1 COPD exacerbation J44.1 Influenza A with respiratory manifestations J10.1
[2022-04-11] MEDS: enoxaparin 40 mg/0.4 mL Syringe SUBCUT (12:34)
[2022-04-12] VITALS (31 sets, daily range): BP systolic 131–146; BP diastolic 71–82; PULSE 55–90; RESP 0–30; TEMP 36.4–36.6; O2SAT 89–97
[2022-04-12] MEDS: ipratropium-albuterol 3 mL Neb INHALATION ×4 (03:36→20:13)
[2022-04-12] MEDS: budesonide 0.5 mg/2 mL Neb INHALATION ×2 (07:50→20:13)
[2022-04-12] MEDS: aspirin 81 mg Chew Tablet PO (08:10)
[2022-04-12] MEDS: amlodipine 10 mg Tablet PO (08:10)
[2022-04-12] MEDS: metoprolol tartrate 25 mg Tablet PO ×2 (08:10→17:16)
[2022-04-12] MEDS: levoFLOXacin 750 mg Tablet PO (08:10)
[2022-04-12] MEDS: oseltamivir phosphate 75 mg Capsule PO ×2 (08:11→17:16)
[2022-04-12] MEDS: pantoprazole DR 40 mg Tablet PO (08:11)
--- NOTE | 2022-04-12 12:14 | PC.CHAP ---
Pastoral Care Encounter/Spiritual Assessment Type of Contact [] Declined real estate sales agent visit [] Patient/Family/Request visit [] Outpatient visit [] Follow-up visit [] Physician referral [] Code/Alert [x] Routine visit [] Staff referral [] Actively dying [] Patient sleeping [x] Family support [] [] Out of room [] Palliative care [] [] Receiving care in room [] Pre-surgical visit [] Trauma [] Long length of stay [x] ICU visit [x] Other: PT setting up in chair Relational/Emotional Strength [] Patient feels connected with others/family/visitors/staff [] Distress [] Loneliness/isolation [] Abandonment Spirituality of Patient [] Person of Kelsie [] Attends Taoism of their Kelsie [] Believes in Prayer [] Reads Bible or Mormonism materials [] There are Spiritual issues to be addressed Camp Advisor Interventions [x] Prayer [] Active listening [] Non-anxious presence [] Spiritual/emotional support [] Crisis/trauma care [] Spiritual counseling [] Bereavement support [] Provided bereavement packet [] Provided Bible/devotional materials [] Provided toy/stuffed animal, coloring book to patient or family member [] Provided Communion [] Anointing/[place] [] Salvation [x] Completed spiritual assessment [] Other: Impact on Illness or Injury [] Angry [] Fearful [] Anxious [] Often cries [] Exhaustion [] Unable to work [] Unable to attend denominational [] Unable to walk/stand [] Unable to read [] Unable to drive [] Unable to eat/drink [] Unable to sleep [] Unable to be with family [] Patient intubated [] Other: Summary Time spent with patient
[2022-04-12] MEDS: enoxaparin 40 mg/0.4 mL Syringe SUBCUT (13:17)
--- NOTE | 2022-04-12 16:04 | PM.PN ---
Subjective Subjective: Slowly improving today. He was able to be weaned down from heated high flow to high flow nasal cannula at 12 L/min today. He kept the BiPAP on overnight. Blood gases looking improved. Medications: Reviewed: Yes Vitals/I&O/Wt Last Vital Signs Temp 97.9 F 04/12/22 12:00 Pulse 76 04/12/22 14:00 Resp 18 04/12/22 13:50 BP 138/71 04/12/22 13:00 Pulse Ox 94 04/12/22 13:50 O2 Del Method 04/12/22 13:50 O2 Flow Rate 12 04/12/22 13:50 FiO2 35 04/12/22 12:00 04/12/22 04/12/22 04/12/22 06:59 14:59 22:59 Intake Total 1000 / 3218.333 720 / 720 Output Total 340 / 640 175 / 175 Balance 660 / 2578.333 545 / 545 Weight last 48 hrs Weight 123.831 kg Weight 122.016 kg Physical Exam Narrative: General: No acute distress, AO x3, on high flow nasal cannula HEENT: PERRLA, pupils bilaterally equal and reactive, pallors not present Chest: Clear to auscultation bilaterally all areas CVS: S1-S2 regular, no murmurs, no tachycardia, no gallops, no rubs Abdomen: Soft, nontender, no organomegaly, bowel sounds present Neuro: No focal deficits, no facial deformity, AO x3, power 5/5 in all limbs Extremities: No edema clubbing or cyanosis. Data 04/11/22 03:24 04/11/22 03:24 A&P Assessment and plan (1) Respiratory failure with hypoxia and hypercapnia: (2) Smoker unmotivated to quit: (3) Polycythemia: (4) COPD exacerbation: (5) Influenza A with respiratory manifestations: Plan Patient presenting today with complaints of generalized body ache malaise, found to be influenza A positive. Also noted to have acute hypoxic hypercapnic respiratory failure for which she is needed to be quickly placed on escalating oxygen requirements with heated high flow nasal cannula. HE agreed to wear a BIPAP overnoght following which his ABG is looking improved oxygen requirements are now being titrated down. Currently on high flow at 12 L/min. Patient does not have a formal diagnosis of COPD, however given that he is a chronic smoker for over, elevated bicarb, polycythemia, no gross mental status changes with hypercarbia, suspect that he has underlying COPD. He also gives a history of bronchitis type symptoms once to twice a year. He has never needed a nebulizer in the past. Continue on supplemental O2 to keep target saturation of 90 to 92% Encourage BiPAP at night time Continue Tamiflu 75 mg p.o. twice daily. Patient may be experiencing an COPD exacerbation from acute viral illness. taper methylprednisolone 40 mg IV every 24h hours and taper as possible. Scheduled DuoNeb and budesonide inhalation. CTA chest negative for gross consolidation or pneumonitis. No PE. [facility] Attestations Medical Necessity Statement*: Needs continued admission for close monitoring of respiratory status, IV steroids, weaning oxygen down to be able to return home with supplemental O2. Coding Level of Care Code Acute Sales Donor Recruitment Representative for Tanisha Rivas Diagnoses Respiratory failure with hypoxia and hypercapnia J96.91; J96.92 Smoker unmotivated to quit F17.200 Polycythemia D75.1 COPD exacerbation J44.1 Influenza A with respiratory manifestations J10.1
--- NOTE | 2022-04-12 18:18 | PC.NURSE ---
Shift Summary: Uneventful shift. Patient has been up to the chair for the entire shift. Titrated form 45L/40% HHF to 12 L NC.
[2022-04-13] VITALS (18 sets, daily range): BP systolic 121–162; BP diastolic 67–92; PULSE 46–74; RESP 13–28; TEMP 36.3–36.4; O2SAT 86–95; BMI 36.0
[2022-04-13] MEDS: ipratropium-albuterol 3 mL Neb INHALATION ×2 (03:00→08:37)
[2022-04-13] MEDS: pantoprazole DR 40 mg Tablet PO (08:18)
[2022-04-13] MEDS: metoprolol tartrate 25 mg Tablet PO (08:18)
[2022-04-13] MEDS: amlodipine 10 mg Tablet PO (08:18)
[2022-04-13] MEDS: levoFLOXacin 750 mg Tablet PO (08:18)
[2022-04-13] MEDS: aspirin 81 mg Chew Tablet PO (08:18)
[2022-04-13] MEDS: oseltamivir phosphate 75 mg Capsule PO (08:18)
[2022-04-13] MEDS: budesonide 0.5 mg/2 mL Neb INHALATION (08:37)
--- NOTE | 2022-04-13 09:55 | P.DS_ITS ---
Discharge Providers Date of Admission: 04/10/22 09:15 Date of Discharge: April 13, 2022 Attending Provider at Admission: Muna Connolly MD Attending Provider at Discharge: Muna Connolly MD Primary Care Provider: KEREN Ortega Diagnoses at Discharge Discharge Diagnosis (1) Respiratory failure with hypoxia and hypercapnia: Status: Acute (2) Smoker unmotivated to quit: Status: Acute (3) Polycythemia: Status: Acute (4) COPD exacerbation: Status: Acute (5) Influenza A with respiratory manifestations: Status: Acute Reason for Visit Reason for Visit: Cough, body aches Brief History: Fly Cervantes is a 67 year old male with a past medical history of hypertension, possible emphysema/COPD, chronic smoker for over 40 years, presented to the emergency room today complaining of generalized body ache.? He states he felt generalized malaise and that is what brought him into the emergency room.? Upon presentation here he was noted to be saturating only 70% on room air though did not appear to be tachypneic or in overt respiratory distress as a result of the same.? His blood gas was significantly deranged with a pH of 7.33/64.4/34.5/34.1.? He was placed on heated high flow nasal cannula at 70% FiO2 with improvement in O2 sats at 91%.? Hospital Course Hospital Course Patient was admitted to the hospital for influenza A pneumonia, acute hypoxic hypercapnic respiratory failure with quickly ecalating oxygen requirements for which he was placed on heated hi flow NC and Bipap ventilation. ?Oxygen requirements were successfully able to be titrated down to HFNC at 6lpm at time of discharge. He was treated with iv steroids, scehduled nebulization with duonebs and budesonide, Tamiflu, presumptive abx. Patient does not have a formal diagnosis of COPD, however given that he is a chronic smoker for over 40 years, elevated bicarb, polycythemia, no gross mental status changes with hypercarbia, suspect that he has underlying long standing COPD.? He also gives a history of bronchitis type symptoms once to twice a year..May also have underlying sleep apnea. He is encouraged to undergo PFTs and sleep study once recovered from acute viral illness. Suspect that patient may be experiencing a COPD exacerbation from acute viral illness Continue Tamiflu 75 mg p.o. twice daily for 5 days. CTA chest negative PE. Overall improved today and stable for discharge. Dose of metoprolol has been reduced at discharge due to noted sinus bradycardia with HR 40s in the hospital. Physical Exam Narrative: General: No acute distress, AO x3 HEENT: PERRLA, pupils bilaterally equal and reactive, pallors not present Chest: Normal vesicular breath sounds, no added sounds, equal good air entry bilaterally CVS: S1-S2 regular, no murmurs, no tachycardia, no gallops, no rubs Abdomen: Soft, nontender, no organomegaly, bowel sounds present Neuro: No focal deficits, no facial deformity, AO x3, power 5/5 in all limbs Discharge Data Studies Completed and Pending Completed Studies During Hospitalization Category Date Time Status CT angio chest PE protcl [id number] Stat Cat Scan 04/10/22 07:27 Completed XR chest 1V portable [id number] Stat Exams 04/10/22 06:41 Completed Pending at discharge Category Date Time Status Blood Culture Stat Lab 04/10/22 07:33 Results Radiology Impressions Chest X-Ray 04/10/22 06:41 IMPRESSION: Platelike opacity in the mid right lung likely reflect atelectasis or scarring. Chest CTA 04/10/22 07:27 IMPRESSION: 1. No pulmonary emboli identified. 2. Mild atelectasis in the mid right lung. Laboratory Results WBC 11.5 10^3/uL (4.0-10.0) H 04/11/22 03:24 RBC 5.82 10^6/uL (4.1-5.3) H 04/11/22 03:24 Hgb 18.2 g/dL (11.7-16.6) H 04/11/22 03:24 Hct 55.9 % (42.0-52.0) H 04/11/22 03:24 MCV 96.0 fl (80-94) H 04/11/22 03:24 MCH 31.3 pg (28.0-34.0) 04/11/22 03:24 MCHC 32.6 g/dL (30.0-36.0) 04/11/22 03:24 RDW 14.0 % (12.1-15.1) 04/11/22 03:24 Plt Count 132 10^3/cmm (130-400) 04/11/22 03:24 MPV 10.2 fL (7.4-10.4) 04/11/22 03:24 Neut % (Auto) 88.7 % 04/11/22 03:24 Lymph % (Auto) 6.2 % 04/11/22 03:24 Carver % (Auto) 4.5 % 04/11/22 03:24 Eos % (Auto) 0.0 % 04/11/22 03:24 Baso % (Auto) 0.1 % 04/11/22 03:24 Neut # (Auto) 10.24 10^3/uL (1.8-7.7) H 04/11/22 03:24 Lymph # (Auto) 0.7 10^3/uL (0.8-4.8) L 04/11/22 03:24 Carver # (Auto) 0.5 10^3/uL (0.2-0.9) 04/11/22 03:24 Eos # (Auto) 0.0 10^3/uL (0.0-0.8) 04/11/22 03:24 Baso # (Auto) 0.0 10^3/uL (0.0-0.1) 04/11/22 03:24 Nucleated RBC % (auto) 0 % 04/11/22 03:24 Nucleated RBCs # 0.0 /100WBC 04/11/22 03:24 D-Dimer 0.34 ug/mIFEU (0-0.59) 04/10/22 07:30 Specimen Type Arterial 04/11/22 08:42 Sample Site Radial, left 04/11/22 08:42 ABG pH 7.30 (7.35-7.45) L 04/11/22 08:42 ABG pCO2 65.2 mmHg (35-45) H* 04/11/22 08:42 ABG pO2 79.4 mmHg (80.0-100.0) L 04/11/22 08:42 ABG HCO3 32.4 mmol/L (22-26) H 04/11/22 08:42 ABG O2 Saturation 96.1 04/11/22 08:42 ABG Base Excess 3.1 mmol/L (-2.0-2.0) H 04/11/22 08:42 Jacky Test Pos 04/11/22 08:42 A-a O2 Gradient 44.3 mmHg (5-10) H 04/11/22 08:42 Hematocrit 57.5 % (42-52) H 04/11/22 08:42 Hgb O2 Saturation 94.9 % (95-100) L 04/11/22 08:42 Carboxyhemoglobin 0.9 %THgb (0.4-20.1) 04/11/22 08:42 Methemoglobin 0.3 % (0.4-1.5) L 04/11/22 08:42 Total Hemoglobin 18.8 g/dL (14-18) H 04/11/22 08:42 Sodium 137.0 mmol/L (131-143) 04/11/22 08:42 Potassium 4.5 mmol/L (3.5-5.0) 04/11/22 08:42 Glucose 221.0 mg/dL (70-115) H 04/11/22 08:42 Ionized Calcium 1.4 mmol/L (1.1-1.4) 04/11/22 08:42 O2 Delivery Device Bipap 04/11/22 08:42 O2 Liters/Min 45.0 % 04/10/22 14:25 FiO2 70.0 % 04/11/22 08:42 Oncology Social Worker ID Cak 04/11/22 08:42 Sodium 137 mmol/L (136-145) 04/11/22 03:24 Potassium 4.8 mmol/L (3.5-5.1) 04/11/22 03:24 Chloride 98 mmol/L (98-107) 04/11/22 03:24 Carbon Dioxide 32 mmol/L (22-29) H 04/11/22 03:24 Anion Gap 11.8 (5-19) 04/11/22 03:24 BUN 43 mg/dL (8-23) H 04/11/22 03:24 Creatinine 1.2 mg/dL (0.7-1.2) 04/11/22 03:24 GFR Calculation 60.8 mL/min (90-130) L 04/11/22 03:24 Glucose 196 mg/dL (65-115) H 04/11/22 03:24 Calculated Osmolality 300 mOsm/kg (285-295) H 04/11/22 03:24 Lactic Acid 1.0 mmol/L (0.5-2.2) 04/10/22 07:30 Calcium 10.5 mg/dL (8.5-10.5) 04/11/22 03:24 Magnesium 2.2 mg/dL (1.7-2.3) 04/11/22 03:24 Total Bilirubin 0.3 mg/dL (0.15-1.2) 04/11/22 03:24 AST 22 U/L (0-40) 04/11/22 03:24 ALT 23 U/L (0-41) 04/11/22 03:24 Alkaline Phosphatase 68 U/L (40-130) 04/11/22 03:24 Total Protein 6.5 g/dL (6.6-8.7) L 04/11/22 03:24 Albumin 3.3 g/dL (3.5-5.2) L 04/11/22 03:24 Globulin 3.2 g/dL (1.3-4.6) 04/11/22 03:24 Procalcitonin 0.13 ng/mL (0-0.5) 04/10/22 07:30 Ur Random Sodium 21 mmol/L 04/10/22 21:00 Ur Random Potassium 49 mmol/L 04/10/22 21:00 Ur Random Chloride 23 mmol/L 04/10/22 21:00 Nasal Influ A H1 2009 PCR Not detected (NOT DETECT) 04/10/22 11:24 Salicylates < 0.3 mg/dL (3-10) L 04/10/22 07:30 Urine Opiates Screen Negative ng/mL (Negative) 04/10/22 09:42 Acetaminophen < 5.0 ug/mL (10-30) L 04/10/22 07:30 Ur Barbiturates Screen Negative ng/mL (Negative) 04/10/22 09:42 Ur Phencyclidine Scrn Negative ng/mL (Negative) 04/10/22 09:42 Ur Amphetamines Screen Negative ng/mL (Negative) 04/10/22 09:42 U Benzodiazepines Scrn Negative ng/mL (Negative) 04/10/22 09:42 Urine Cocaine Screen Negative ng/mL (Negative) 04/10/22 09:42 U Marijuana (THC) Screen Negative ng/mL (Negative) 04/10/22 09:42 Coronavirus 229E (PCR) Not detected (NOT DETECT) 04/10/22 07:45 Influenza A (H1) PCR Not detected (NOT DETECT) 04/10/22 11:24 Influenza A (H3) PCR Detected (NOT DETECT) A 04/10/22 11:24 Influenza Type A Ag negative (Negative) 04/10/22 07:32 Influenza Type A (PCR) Detected (NOT DETECT) A 04/10/22 11:24 Influenza Type B Ag negative (Negative) 04/10/22 07:32 Influenza Type B (PCR) Not detected (NOT DETECT) 04/10/22 11:24 SARS-CoV-2 (PCR) Not detected (NOT DETECT) 04/10/22 07:45 Vitals Last Vital Signs Temp 97.6 F 04/13/22 08:00 Pulse 63 04/13/22 08:38 Resp 18 04/13/22 08:38 BP 162/92 04/13/22 08:00 Pulse Ox 95 04/13/22 08:38 O2 Del Method 04/13/22 08:38 O2 Flow Rate 8 04/13/22 08:38 FiO2 40 04/13/22 08:00 Discharge Plan Discharge Patient Disposition: Home Condition: Stable Prescriptions: New levofloxacin 750 mg Tablet 750 mg PO DAILY 2 Days Qty: 2 0RF pantoprazole 40 mg Tablet,Delayed Release (Dr/Ec) 40 mg PO DAILY 30 Days Qty: 30 0RF Spiriva Respimat 2.5 mcg/actuation mist 2 puff inhalation DAILY 30 Days Qty: 4 1RF oseltamivir 75 mg Capsule 75 mg PO BID 2 Days Qty: 4 0RF albuterol sulfate 90 mcg/actuation aerosol powdr breath activated 1 inh inhalation Q6H PRN (Reason: shortness of breath) 30 Days Qty: 1 1RF fluticasone propion-salmeterol [Advair Diskus] 500-50 mcg/dose blister with device 1 inh inhalation BID 30 Days Qty: 60 1RF prednisone 20 mg tablet 40 mg PO DAILY 5 Days Qty: 20 0RF Continued multivitamin Tablet 1 tab PO DAILY dicyclomine 20 mg Tablet 20 mg PO QID aspirin 81 mg Tablet,Chewable 81 mg PO DAILY amlodipine 10 mg tablet 10 mg PO DAILY telmisartan-hydrochlorothiazid 80-25 mg tablet 1 tab PO DAILY Changed metoprolol tartrate 25 mg tablet 12.5 mg PO BID 90 Days Qty: 180 4RF Discharge Orders: Discharge Order (Routine); Ordered 04/13/22 Ordered By: Muna Connolly Referrals: Andrew Henderson FNP [Primary Care Provider] - 1 week Datar,Santy Cook MD [Physician] - 1 month (COPD, chronic smoker) Discharge Diet: Usual diet Discharge Activity: Increase activity as tolerated Patient Instructions: Opioid Safety Activity Restrictions/Additional Instructions: You are metoprolol dose has been reduced from 25 mg twice a day to 12.5 mg twice a day. This was done because your heart rate was running low in the 40s while in the hospital. Consider undergoing PFT and sleep studies as outpatient as suspected to have underlying COPD and sleep apnea. Discharge Attestations Time Spent in Discharge Care*: greater than 30 min Quality Metrics Clinical Quality Measures [ No reported AMI, CVA or VTE this stay] Coding Level of Care Code Acute g FW DC note Diagnoses Respiratory failure with hypoxia and hypercapnia J96.91; J96.92 Smoker unmotivated to quit F17.200 Polycythemia D75.1 COPD exacerbation J44.1 Influenza A with respiratory manifestations J10.1
--- NOTE | 2022-04-13 11:37 | PC.CHAP ---
Pastoral Care Encounter/Spiritual Assessment Type of Contact [] Declined anodic treater visit [] Patient/Family/Request visit [] Outpatient visit [] Follow-up visit [] Physician referral [] Code/Alert [x] Routine visit [] Staff referral [] Actively dying [] Patient sleeping [x] Family support [] [] Out of room [] Palliative care [] [] Receiving care in room [] Pre-surgical visit [] Trauma [] Long length of stay [x] ICU visit [x] Other: PT walking around ICU with RN and oxygen Relational/Emotional Strength [] Patient feels connected with others/family/visitors/staff [] Distress [] Loneliness/isolation [] Abandonment Spirituality of Patient [] Person of Kelsie [] Attends Orthodox of their Kelsie [] Believes in Prayer [] Reads Bible or Yarsanism materials [] There are Spiritual issues to be addressed Costume Mistress Interventions [x] Prayer [] Active listening [] Non-anxious presence [] Spiritual/emotional support [] Crisis/trauma care [] Spiritual counseling [] Bereavement support [] Provided bereavement packet [] Provided Bible/devotional materials [] Provided toy/stuffed animal, coloring book to patient or family member [] Provided Communion [] Anointing/[place] [] Salvation [x] Completed spiritual assessment [] Other: Impact on Illness or Injury [] Angry [] Fearful [] Anxious [] Often cries [] Exhaustion [] Unable to work [] Unable to attend buddhism [] Unable to walk/stand [] Unable to read [] Unable to drive [] Unable to eat/drink [] Unable to sleep [] Unable to be with family [] Patient intubated [] Other: Summary Time spent with patient
--- NOTE | 2022-04-13 12:55 | PC.SOCIAL ---
IMM Updated Updated pt on IMM. No questions voiced. Provided pt a copy. Initialed, dated, & timed copy in chart.
--- NOTE | 2022-04-13 13:18 | PC.NURSE ---
Discharge instructions given to patient and son, prescriptions sent to pharmacy, appointments made, IV removed, home oxygen on and working. Patient and belongings wheeled to private vehicle by this nurse accompanied by son.
== END 2022-04-13 13:00 | disposition home or self-care (01) | DRG 193 ==
LOC: ER 10:10 → ER IP 10:54 → ICU 12:16
PROVIDERS: Admitting Provider Student in an Organized Health Care Education/Training Program; Emergency Provider Family Medicine; PCP Registered Nurse; Visit Provider Student in an Organized Health Care Education/Training Program
DX: J10.00 Influenza due to other identified influenza virus with unspecified type of pneumonia (principal); J96.01 Acute respiratory failure with hypoxia; J96.02 Acute respiratory failure with hypercapnia; I10 Essential (primary) hypertension; J43.9 Emphysema, unspecified; F17.200 Nicotine dependence, unspecified, uncomplicated; F40.240 Claustrophobia; D75.1 Secondary polycythemia; G47.30 Sleep apnea, unspecified; Z79.82 Long term (current) use of aspirin
CPT/HCPCS: 36415; 36600; 71045; 71275; 80051; 80053; 80306; 80307; 82330; 82436; 82803; 82805; 83605; 83735; 84133; 84145; 84300; 85025; 85378; 87040; 87631; 87635; 87804; 93005; 94640; 94660; 94664; 94760; 96372; 96374; 99285; J1650; J2920; J2930; J7030; J7626; Q9967

== ENCOUNTER → 2022-06-23 12:34 | Outpatient (BNVA) | payer MEDICARE, SELFPAY | PROVIDERS: PCP Registered Nurse; Visit Provider Internal Medicine Pulmonary Disease | DX: J44.9 Chronic obstructive pulmonary disease, unspecified (principal); Z99.81 Dependence on supplemental oxygen; F17.210 Nicotine dependence, cigarettes, uncomplicated; J98.6 Disorders of diaphragm | CPT/HCPCS: 99204 ==

== ENCOUNTER → 2022-10-20 11:08 | Outpatient (BNVA) | payer MEDICARE, SELFPAY | PROVIDERS: PCP Registered Nurse; Visit Provider Registered Nurse | DX: E78.5 Hyperlipidemia, unspecified (principal); I10 Essential (primary) hypertension; R73.9 Hyperglycemia, unspecified; Z13.1 Encounter for screening for diabetes mellitus | CPT/HCPCS: 80053; 80061; 83036; 85025 ==

== ENCOUNTER → 2023-02-23 09:19 | Outpatient (BNVA) | payer MEDICARE, SELFPAY | PROVIDERS: PCP Registered Nurse; Visit Provider Registered Nurse | DX: E11.9 Type 2 diabetes mellitus without complications (principal); I10 Essential (primary) hypertension | CPT/HCPCS: 83036 ==

== ENCOUNTER → 2023-11-30 09:55 | Outpatient (BNVA) | payer MEDICARE, SELFPAY | PROVIDERS: PCP Registered Nurse; Visit Provider Nurse Practitioner Family | DX: I10 Essential (primary) hypertension (principal); R73.9 Hyperglycemia, unspecified; Z00.00 Encounter for general adult medical examination without abnormal findings | CPT/HCPCS: 80053; 83036; 85007; 85025 ==

== ENCOUNTER → 2023-12-26 14:42 | Outpatient (BNVA) | payer MEDICARE, SELFPAY | PROVIDERS: PCP Registered Nurse; Visit Provider Nurse Practitioner Family | DX: D72.820 Lymphocytosis (symptomatic) (principal) | CPT/HCPCS: 80053; 85007; 85027 ==

== ENCOUNTER → 2024-12-02 08:58 | Outpatient (BNVA) | payer MEDICARE, SELFPAY | PROVIDERS: PCP Registered Nurse; Visit Provider Registered Nurse | DX: I10 Essential (primary) hypertension (principal); Z13.1 Encounter for screening for diabetes mellitus | CPT/HCPCS: 80053; 80061; 83036; 85025 ==